=== PATIENT | female | born 1960 | race Caucasian/White ===

== ENCOUNTER → 2016-09-20 | Outpatient (CLI) | payer OTHER ==
--- NOTE | 2016-09-23 10:29 | DX ---
DEXA Bone Densitometry Technique: DEXA scan was performed on [employer] Discovery W Bone Densitometer Indication: Osteopenia Comparator Study: March 2012 Results: Lumbar Spine BMD: 0.889 T-score: -1.4 Prior BMD: 1.074 % change: -17.2% Total Hip (Right) BMD: 0.823 T-score: -1.0 Femoral Neck (Right) BMD: 0.814 T-score: -0.3 Total Hip (Left) BMD: 0.842 T-score: -0.8 Prior BMD: 0.915 % change: -7.9% Femoral Neck (Left) BMD: 0.808 T-score: -0.4 CONCLUSION: Osteopenia In comparison to the prior study from March 2012 the patient measured BMD in the lumbar spine has decr eased by 17.2% which is a significant change. Patient's measured BMD in the total hip has decreased b y 7.9% which is a significant change ADDITIONAL COMMENTS: By FRAX calculation the estimated 10 year probability of any osteoporotic fracture is 5.2%. The estim ated 10 year probability of hip fracture is 0.1%. Consider repeating this study in 2 years NOTE: The risk of osteoporotic fractures increases approximately twofold for each 1.0 SD decrease in T-score. The T-score represents the standard deviations from a young normal, same sex, reference po pulation. Low bone density is not the only risk factor for fracture. Clinical factors to consider include fall risk, previous osteoporotic fractures, family history of fractures, smoking, and low body weight. Patients who have an unexpectedly low BMD may need to be evaluated for secondary causes of low bone m ineral density. In comparing the present study to a prior study, lack of a significant increase or decrease in BMD ma y signify efficacy of the patient's present treatment. Bone mineral density measurements performed with densitometers produced by different manufacturers ar e not comparable. For the most reproducible BMD measurement, subsequent exams should be performed on the same densitometer.
== END ==
LOC: BMCIMAGING 09:31
PROVIDERS: ATTEND Nurse Practitioner Adult Health
DX: Z13.820 Encounter for screening for osteoporosis (principal)

== ENCOUNTER → 2017-05-28 | Outpatient (CLI) | payer OTHER ==
[~2017-05-28] MED LIST: GADOBUTROL 10 ML VIAL IVP ONE
== END ==
LOC: FIMAGING 06:53
PROVIDERS: ATTEND Neurological Surgery
DX: G93.89 Other specified disorders of brain (principal)
CPT/HCPCS: A9585